=== PATIENT | male | born 1995 | race Caucasian/White ===

== ENCOUNTER 2022-12-14 06:11 | Day surgery (SDC) | payer OTHER ==
[2022-12-03 13:59] VITALS: BMI 28.7
[2022-12-14] MEDS ORDERED: oxyCODONE HCL 5 MG TABLET PO PRN (07:02)
[2022-12-14] MEDS ORDERED: ONDANSETRON 4 MG/2 ML VIAL IVPUSH PRN (07:02)
[2022-12-14] MEDS ORDERED: ACETAMINOPHEN 325 MG TABLET (FP) PO PRN (07:02)
[2022-12-14] MEDS ORDERED: ACETAMINOPHEN INJECTION 100 ML IVPB ONE (07:04)
[2022-12-14] MEDS ORDERED: MIDAZOLAM HCL 2 MG/2 ML SINGLE DOSE VIAL ONE (07:04)
[2022-12-14] MEDS ORDERED: BUPIVACAINE HCL/PF 0.5% (5 MG/ML) 30 ML VIAL IJ ONE (07:04)
[2022-12-14] MEDS ORDERED: DEXAMETHASONE SOD PHOSPHATE/PF 10 MG/ML SDV ONE (07:04)
[2022-12-14] MEDS ORDERED: KETOROLAC TROMETHAMINE 30 MG/1 ML VIAL ONE (07:12)
[2022-12-14] MEDS ORDERED: DEXAMETHASONE SOD PHOSPHATE 4 MG/1 ML VIAL ONE (07:12)
[2022-12-14] MEDS ORDERED: PROPOFOL 40 ML ONE (07:12)
[2022-12-14] MEDS ORDERED: ceFAZolin SODIUM 1 GM VIAL ONE ×2 (07:13)
[2022-12-14] MEDS ORDERED: LACTATED RINGERS SOLUTION 1,000 ML IV SCH (07:15)
[2022-12-14] MEDS ORDERED: BUPIVACAINE HCL/EPINEPHRINE/PF 30 ML VIAL IJ ONE (07:26)
[2022-12-14] MEDS ORDERED: EPINEPHrine 1:1,000 1,000 MCG/ML ML ONE (07:27)
[2022-12-14] MEDS ORDERED: KETAMINE HCL 200 MG/20 ML VIAL ONE (07:51)
[2022-12-14] MEDS ORDERED: PROPOFOL 20 ML ONE ×3 (08:21→09:17)
[2022-12-14] MEDS ORDERED: FENTANYL CITRATE/PF 50 MCG/ML VIAL ONE (09:44)
[2022-12-14] MEDS ORDERED: ONDANSETRON 4 MG/2 ML VIAL ONE (09:44)
[2022-12-14] MEDS ORDERED: oxyCODONE HCL 5 MG TABLET ONE (09:57)
[2022-12-14 11:50] VITALS: RESP 16; TEMP 96.6
[2022-12-14 11:57] VITALS: BP 127/73; PULSE 67
== END 2022-12-14 11:25 | disposition home or self-care (01) ==
LOC: FASU 06:11
PROVIDERS: ATTEND Orthopaedic Surgery
PROC: 0LM14ZZ Reattachment of Right Shoulder Tendon, Percutaneous Endoscopic Approach (ICD-10-PCS; principal; 2022-12-14 08:12)
DX: M24.411 Recurrent dislocation, right shoulder (principal)
CPT/HCPCS: 94760; C1713